=== PATIENT | male | born 1945 | race Two or more races ===

== ENCOUNTER 2017-10-18 09:12 | Outpatient (CLI) | payer MEDICARE, MEDICAID ==
[~2017-10-18 09:12] MED LIST: CLOP75TA15 PO; WARF1TAB47
== END 2017-10-18 23:59 | disposition home or self-care (01) ==
LOC: WOU 09:12
PROVIDERS: ATTEND Podiatrist Foot & Ankle Surgery
DX: L02.612 Cutaneous abscess of left foot (principal); Z87.891 Personal history of nicotine dependence; Z79.02 Long term (current) use of antithrombotics/antiplatelets; L60.0 Ingrowing nail; I10 Essential (primary) hypertension; E78.00 Pure hypercholesterolemia, unspecified
CPT/HCPCS: 10060; 87070; 87077; 87102 ×3; 87186; A6209; A6402

== ENCOUNTER 2017-10-27 12:20 | Outpatient (CLI) | payer MEDICARE, MEDICAID | END 2017-10-27 23:59 | disposition home or self-care (01) | LOC: WOU 12:20 | PROVIDERS: ATTEND Podiatrist Foot & Ankle Surgery | DX: Z09 Encounter for follow-up examination after completed treatment for conditions other than malignant neoplasm (principal); R60.0 Localized edema | CPT/HCPCS: A6402; G0463 ==

== ENCOUNTER 2019-01-02 14:00 | Outpatient (CLI) | payer MEDICARE, MEDICAID | END 2019-01-02 23:59 | disposition home or self-care (01) | LOC: WOU 14:00 | PROVIDERS: ATTEND Podiatrist Foot & Ankle Surgery | DX: L60.0 Ingrowing nail (principal); B35.1 Tinea unguium | CPT/HCPCS: G0463 ==

== ENCOUNTER 2022-10-26 13:14 | Outpatient (CLI) | payer MEDICARE, MEDICAID ==
[~2022-10-26 13:14] MED LIST changes: +WARF1TAB; -WARF1TAB47
== END 2022-10-26 23:59 | disposition home or self-care (01) ==
LOC: WOU 13:14
PROVIDERS: ATTEND Podiatrist Foot & Ankle Surgery
DX: R60.0 Localized edema (principal); M79.672 Pain in left foot; M79.671 Pain in right foot; L60.3 Nail dystrophy
CPT/HCPCS: G0463